=== PATIENT | male | born 1965 | race Caucasian/White ===

== ENCOUNTER 2019-06-16 11:07 | Outpatient (REF) | payer BC, SELFPAY ==
[2019-06-16 19:21] LABS: Anion Gap 5.6 mmol/L (3-11); BUN 14 mg/dL (7-18); CO2 32.4 mmol/L (21.0-32.0); Calcium 9.5 mg/dL (8.5-10.1); Chloride 102 mmol/L (98-107); Glucose 123 mg/dL (74-106); Potassium 4.4 mmol/L (3.5-5.1); Sodium 140 mmol/L (136-145)
== END 2019-06-16 11:27 ==
LOC: NCHCN 11:07
PROVIDERS: PCP Physician Assistant; Visit Provider Nurse Practitioner Family
DX: I10 Essential (primary) hypertension (principal)
CPT/HCPCS: 80048

== ENCOUNTER 2020-04-24 19:46 | Outpatient (REF) | payer BC, SELFPAY ==
[2020-04-24 20:17] LABS: ALT 52 U/L (16-63); AST 31 U/L (15-37); Albumin 4.4 g/dL (3.4-5.0); Alkaline Phosphatase 58 U/L (46-116); Anion Gap 7.2 mmol/L (3-11); BUN 12 mg/dL (7-18); Bilirubin, Total 0.5 mg/dL (0.2-1.0); CO2 28.8 mmol/L (21.0-32.0); CREATININE 0.97 mg/dL (0.70-1.30); Calcium 9.2 mg/dL (8.5-10.1); Calculated LDL 117 mg/dL (<100); Chloride 103 mmol/L (98-107); Cholesterol 203 mg/dL (<200); Glucose 114 mg/dL (74-106); HDL Cholesterol 44 mg/dL (40-60); Potassium 4.7 mmol/L (3.5-5.1); Sodium 139 mmol/L (136-145); Total Protein 7.6 g/dL (6.4-8.2); Triglyceride 214 mg/dL (<150)
== END 2020-04-24 20:06 ==
LOC: NCHCN 19:46
PROVIDERS: PCP Physician Assistant; Visit Provider Nurse Practitioner Family
DX: E78.5 Hyperlipidemia, unspecified (principal); I10 Essential (primary) hypertension
CPT/HCPCS: 80053; 80061

== ENCOUNTER 2021-05-22 09:13 | Outpatient (REF) | payer BC, SELFPAY ==
[2021-05-22 17:41] LABS: ALT 58 U/L (16-63); AST 28 U/L (15-37); Albumin 4.3 g/dL (3.4-5.0); Alkaline Phosphatase 68 U/L (46-116); Anion Gap 6.9 mmol/L (3-11); BUN 12 mg/dL (7-18); Bilirubin, Total 0.4 mg/dL (0.2-1.0); CO2 31.1 mmol/L (21.0-32.0); Chloride 102 mmol/L (98-107); Cholesterol 251 mg/dL (<200); Glucose 122 mg/dL (74-106); HDL Cholesterol 28 mg/dL (40-60); Potassium 4.4 mmol/L (3.5-5.1); Sodium 140 mmol/L (136-145); Total Protein 7.5 g/dL (6.4-8.2); Triglyceride 871 mg/dL (<150)
[2021-05-22 18:02] LABS: LDL CHOLESTEROL 88 mg/dL (<100)
== END 2021-05-22 09:14 | disposition home or self-care (01) ==
LOC: NCHCN 09:13
PROVIDERS: PCP Physician Assistant; Visit Provider Nurse Practitioner Family
DX: I10 Essential (primary) hypertension (principal); E78.5 Hyperlipidemia, unspecified
CPT/HCPCS: 80053; 80061; 83721

== ENCOUNTER 2021-06-05 08:14 | Outpatient (REF) | payer BC, SELFPAY ==
[2021-06-06 21:54] LABS: Hemoglobin A1C 5.7 % (<5.7)
== END 2021-06-05 08:15 | disposition home or self-care (01) ==
LOC: NCHCN 08:14
PROVIDERS: PCP Physician Assistant; Visit Provider Nurse Practitioner Family
DX: R73.9 Hyperglycemia, unspecified (principal)
CPT/HCPCS: 83036

== ENCOUNTER 2021-07-29 15:16 | Outpatient (REF) | payer BC, SELFPAY ==
[2021-07-29 21:30] LABS: Calculated LDL 97 mg/dL (<100); Cholesterol 169 mg/dL (<200); HDL Cholesterol 40 mg/dL (40-60); Triglyceride 162 mg/dL (<150)
== END 2021-07-29 15:17 | disposition home or self-care (01) ==
LOC: NCHCN 15:16
PROVIDERS: PCP Physician Assistant; Visit Provider Nurse Practitioner Family
DX: E78.5 Hyperlipidemia, unspecified (principal)
CPT/HCPCS: 80061

== ENCOUNTER 2022-04-29 15:03 | Outpatient (REF) | payer BC, SELFPAY ==
[2022-04-29 20:18] LABS: ALT 41 U/L (16-63); AST 32 U/L (15-37); Albumin 4.6 g/dL (3.4-5.0); Alkaline Phosphatase 59 U/L (46-116); Anion Gap 7.7 mmol/L (3-11); BUN 10 mg/dL (7-18); Bilirubin, Total 0.9 mg/dL (0.2-1.0); CO2 26.3 mmol/L (21.0-32.0); CREATININE 0.9 mg/dL (0.70-1.30); Calcium 9.4 mg/dL (8.5-10.1); Chloride 102 mmol/L (98-107); Estimated GFR 100.24 (mL/min/1.73m2); Glucose 112 mg/dL (74-106); Potassium 3.7 mmol/L (3.5-5.1); Sodium 136 mmol/L (136-145)
== END 2022-04-29 15:04 | disposition home or self-care (01) ==
LOC: NCHCN 15:03
PROVIDERS: PCP Physician Assistant; Visit Provider Nurse Practitioner Family
DX: I10 Essential (primary) hypertension (principal); E78.5 Hyperlipidemia, unspecified
CPT/HCPCS: 80053

== ENCOUNTER 2022-05-08 15:28 | Outpatient (REF) | payer BC, SELFPAY ==
[2022-05-08 19:02] LABS: HCT 45.4 % (40.0-50.0); HGB 15.3 g/dL (13.5-17.5); MCH 31.8 pg (27.0-33.0); MCHC 33.7 % (32.0-36.0); MCV 94 fL (80-95); MPV 10.3 fL (8.0-11.0); Platelet Count 228 10^3/uL (130-400); RBC 4.81 10^6/uL (4.36-5.78); RDW 12.5 % (11.8-14.1); RDW-SD 43.7 fL; WBC 9.09 10^3/uL (4.4-10.8)
[2022-05-08 19:18] LABS: Anion Gap 9.1 mmol/L (3-11); BUN 12 mg/dL (7-18); CO2 26.9 mmol/L (21.0-32.0); CREATININE 0.9 mg/dL (0.70-1.30); Calcium 9.3 mg/dL (8.5-10.1); Chloride 103 mmol/L (98-107); Estimated GFR 100.24 (mL/min/1.73m2); Glucose 123 mg/dL (74-106); Potassium 3.8 mmol/L (3.5-5.1); Sodium 139 mmol/L (136-145); TSH 1.31 uIU/mL (0.36-3.74)
== END 2022-05-08 15:29 | disposition home or self-care (01) ==
LOC: NCHCN 15:28
PROVIDERS: PCP Physician Assistant; Visit Provider Nurse Practitioner Family
DX: R55 Syncope and collapse (principal)
CPT/HCPCS: 80048; 85027; 84443

== ENCOUNTER 2022-06-16 11:20 | Outpatient (CLI) | payer BC, SELFPAY ==
--- NOTE | 2022-06-16 11:15 | RT.EKG_ITS ---
APPROVED REPORT Exam: Resting ECG Reason for Exam: New patient workup Patient Location: O HR:61 bpm ECG Measurements Heart Rate 61 AXIS NJ 150 P 80 QRSd 114 QRS -8 QT 408 T 60 QTc 411 Conclusion Sinus rhythm...normal P axis, V-rate 50- 99 Left atrial enlargement...P, P'>60mS, <-0.15mV V1 Incomplete right bundle branch block...QRSd >112, terminal axis(90,270) Left ventricular hypertrophy...multiple LVH criteria Left anterior fascicular block
== END 2022-06-16 11:21 | disposition home or self-care (01) ==
LOC: DI.CARD 11:21
PROVIDERS: PCP Physician Assistant; Visit Provider Internal Medicine Cardiovascular Disease
DX: R55 Syncope and collapse (principal); R94.31 Abnormal electrocardiogram [ECG] [EKG]; I44.4 Left anterior fascicular block; I45.19 Other right bundle-branch block
CPT/HCPCS: 93010

== ENCOUNTER 2024-07-04 20:06 | Outpatient (REF) | payer OTHER, SELFPAY ==
[2024-07-04 19:24] LABS: ALT 40 U/L (16-63); AST 32 U/L (15-37); Albumin 4.4 g/dL (3.4-5.0); Alkaline Phosphatase 70 U/L (46-116); Anion Gap 5.5 mmol/L (3-11); BUN 14 mg/dL (7-18); Bilirubin, Total 0.34 mg/dL (0.2-1.0); CO2 30.5 mmol/L (21.0-32.0); CREATININE 1.1 mg/dL (0.70-1.30); Calcium 9.6 mg/dL (8.5-10.1); Calculated LDL 115 mg/dL (<100); Chloride 105 mmol/L (98-107); Cholesterol 207 mg/dL (<200); Estimated GFR 77.81 (mL/min/1.73m2); Glucose 100 mg/dL (74-106); HDL Cholesterol 58 mg/dL (40-60); Potassium 4.7 mmol/L (3.5-5.1); Sodium 141 mmol/L (136-145); Triglyceride 173 mg/dL (<150)
--- OUTSIDE RECORDS SUMMARY | 2024-07-04 20:08 | XMS_ITS | Encounter Summary ---
Author Organization [facility] Address [facility] [place] [address] Care Team Providers Care Cargo Surveyor Name Role Phone Esther Hall APRN Primary Care Provider [phone]- [phone] Reason for Visit * Reason Comments Skin Check * Consultation (Routine) - Closed Specialty Diagnoses / Procedures Referred By Rena shanks Referred To Contact Dermatology Diagnoses Psoriasis, unspecified Psoriasis; Est. Patient-Notes Received Procedures Consult Esther Hall APRN [address] [place] [address] Dat Sheldon MD [address] [place] [address], [facility] [place] [address] Referral ID Status Reason Start Date Expiration Date V isits Requested Visits Authorized [id number] Closed PCP Updated and/or Approved 05/28/2021 05/28/2022 6 6 Encounter Details Date Type Department Care Team (Late st Contact Info) Description 08/27/2021 2:00 PM EST Office Visit Dermatology at [address] [phone] Dat Sheldon MD [address] [place] [address], [facility] [place] [address] Family history of psoriasis; History of psoriasis; Seborrheic dermatitis Social History Tobacco Use Types Packs/Day Years Used Date Smoking Tobacco: Never Smokeless Tobacco: Never Alcohol Use Standard Drinks/Week Comments Yes 0 (1 standard drink = 0.6 oz pur e alcohol) Sex and Gender Information Value Date Recorded Sex Assigned at Not on file Gender Identity Not on file Sexual Orientation Not on file documented as of this encounter Progress Notes * Dat Sheldon MD - 08/27/2021 2:00 PM EST PROBLEM: 1. Follow-up for evaluation of spot on scalp 2. Followup pustular psoriasis, palmar hands. 3. Family history of psoriasis in Father. Nikita follows up after last being seen in December 2015 for his psoriasis. In the meantime that has been quiesced sent. However in January/February he noted a red patch at the central parietal scalp andwas seen by his PCP and given clobetasol cream. After 6 applications that spot went away. He decided to come in just to have recheck the genital area in his scalp for any other advice and may give him . Physical examination reveals a pleasant 55-year-old man who has blue eyes reddish graying hair and fair skin. He is a benign examination of the scalp with patchy areas of seborrheic dermatitis present throughout the scalp but also in the conchal bowls of both ears. He has no pustular psoriasis on the hands the palms is very no involvement of his feet. He has no stigmata of psoriasis on the elbowsor knees. The only findings today are the seborrheic dermatitis findings within the scalp. Assessment and plan: Seborrheic dermatitis of scalp 1. Suspect the findings are similar were those of seborrheic dermatitis of his scalp 2. Recommend that he continue to use his Nizoral shampoo but alternate this with second medication per either tar shampoo or and shoulders, Selsun Blue etc. Allow lather to sit for 20 minutes before rinsing out. 3. Reassured patient I see no malignant or premalignant lesions on examination today. His has been concerned about this possibility. 4. Return to clinic as needed for new lesions concerns. History of psoriasis 1. Currently quiescent 2. Patient reassured Benign skin examination 1. Patient reassured about his benign skin examination 2. Encouraged use of SPF 50-70 sunscreen CC: Esther Hall APRN documented in this encounter Plan of Treatment Not on file documented as of this encounter Visit Diagnoses Diagnosis Family history of psoriasis Family history of skin conditions History of psoriasis Personal history of diseases of skin and subcutaneous tissue Seborrheic dermatitis Seborrheic dermatitis, unspecified documented in this encounter Care Teams Cargo Surveyor Relationship Specialty Start Date End Date Esther Hall, ASSISTANT PROFESSOR OF MUSIC [address] [place] [address] PCP - General Family Medicine 06/11/21 documented as of this encounter
--- OUTSIDE RECORDS SUMMARY | 2024-07-04 20:08 | XMS_ITS | Encounter Summary ---
Author Organization [facility] Address [address] [place] [address] Care Team Providers Care Regulation Supervisor Name Role Phone Unknown, Provider Primary Care Provider Unava ilable Encounter Details Date Type Department Care Team (Late st Contact Info) Description 09/02/2018 Results Only [facility] [phone] Vahid Linton MD [address] [place] [phone] Social History Tobacco Use Types Packs/Day Years Used Date Smoking Tobacco: Never Assessed Sex and Gender Information Value Date Recorded Sex Assigned at Not on file Legal Sex Male 18:09 EST Gender Identity Male 05/11/2019 8:53 EST Sexual Orientation Not on file documented as of this encounter Plan of Treatment Not on file documented as of this encounter Procedures Procedure Name Priority Date/Time Associated Diagnosis Comments SURGICAL PATHOLOGY Routine 09/02/2018 21 :56 EST documented in this encounter Results * SURGICAL PATHOLOGY (09/02/2018 21:56 EST) Pathology Report: SURGICAL PATHOLOGY REPORT Reports generated via electronic interface contain original data; however they are lacking the format of the original report. Caution should be taken when reading/interpret ing unformatted reports. Name: ? NIKITA HAGEN ? Accession #: ? [id number] ? : ? 1965 (Age: 52) ??M ? Collect Date: ? 09/02/2018 ? Location: ? [facility] ? Receive Date: ? 09/02/2018 ? Provider: VAHID LINTON MD Copy to: ? Final Pathologic Diagnosis: COLON, SIGMOID, POLYPECTOMY: - Sessile serrated adenoma. Document reviewed and electronically signed by: SALINA MORTENSEN MD Report ??Date: 09/06/2018 12:37 By the signature above, the attending physician certifies that he/she has personally conducted a gross and/or microscopic examination of the described specimens and rendered or confirmed the above diagnosis. Specimen(s) Received: Sigmoid polypectomy Clinical History: Screening; sigmoid colon polyp Gross Description: ? Received in formalin labelled with proper patient identification (initials B, D) and sigmoid polyp is an aggregate of garnett-yellow soft tissue (0.8 x 0.4 x 0.3 cm). Submitted in toto in 1. AMEE Cheema (ASC) 09/03/2018 7:30 AM End of Report [facility] 09/02/2018 21:5 6 EST 09/02/2018 21:56 EST us Vahid Linton MD PATHOLOGY ORDERABLES F inal Result [facility] [address] [place] [address] documented in this encounter Visit Diagnoses Not on filedocumented in this encounter Care Teams Regulation Supervisor Relationship Specialty Start Date End Date Unknown, Provider, PCP - General 09/02/18 04/05/19 documented as of this encounter
--- OUTSIDE RECORDS SUMMARY | 2024-07-04 20:08 | XMS_ITS | Encounter Summary ---
Author Organization [facility] Address [address] [place] [address] Care Team Providers Care Digital Assistant Name Role Phone Steve Flores MD Primary Care Provider Unknown, Provider MD Unavailable Unavailable Encounter Details Date Type Department Care Team (Late st Contact Info) Description 10/10/2021 Lab Requisition [facility] Pathology & Laboratory Medicine - [facility] [address] [place] [address] Vahid Beasley MD [address] [place] [phone] Encounter for other general examination Social History Tobacco Use Types Packs/Day Years Used Date Smoking Tobacco: Never Smokeless Tobacco: Never Interpersonal Safety Answer Date Record ed Physically Hurt Never 01/29/2020 Verbally Threaten Not on file 01/29/2020 Sex and Gender Information Value Date Recorded Sex Assigned at Not on file Legal Sex Male 18:09 EST Gender Identity Male 05/11/2019 8:53 EST Sexual Orientation Not on file documented as of this encounter Plan of Treatment Not on file documented as of this encounter Procedures Procedure Name Priority Date/Time Associated Diagnosis Comments SURGICAL PATHOLOGY Today 10/10/2021 13 :27 EDT documented in this encounter Results * SURGICAL PATHOLOGY (10/10/2021 13:27 EDT) Note to Patient The following pathology results have been interpreted by your pathologist and may be available to you before your health provider has had the opportunity to review them. Please allow time for your provider to receive these results and explore management options, if applicable. 10/15/2021 8:54 T [facility] Final Diagnosis A. RECTUM, POLYP, BIOPSY: - Hyperplastic polyp. 10/15/2021 8:54 [facility] Attestation By the signature below, the attending physician certifies that they have 1) personally conducted a gross and/or microscopic examination of the described specimen(s), and/or personally interpreted the results of laboratory testing of the described specimen(s), and 2) personally rendered or confirmed the above diagnosis. 10/15/2021 8:54 [facility] at 0854 Clinical History History of colon polyp 10/15/2021 8:54 T [facility] Gross Description A. Received in formalin labelled with proper patient identification (initials B, D) and rectal polyp is a single fragment of pink-garnett soft tissue (0.4 x 0.4 x 0.3 cm). The specimen is entirely submitted in A1. AMEE KRAFT(ASCP) 10/11/2021 10:39 10/15/2021 8:54 T [facility] Performing Lab [facility] 10/15/2021 8:54 T [facility] Scanned Images 10/15/2021 8:54 [facility] Tissue SPECIMEN FROM RECTUM / Unknown 10/10/2021 13:27 EDT 10/11/2021 8:17 EDT us Vahid Beasley MD PATHOLOGY ORDERABLES F inal Result [facility] [address] [place] [address] documented in this encounter Visit Diagnoses Diagnosis Encounter for other general examination documented in this encounter Care Teams Digital Assistant Relationship Specialty Start Date End Date Steve Flores MD [address] [place] [address] PCP - General 05/11/19 Unknown, Provider, [place] [address] 05/11/19 documented as of this encounter
--- OUTSIDE RECORDS SUMMARY | 2024-07-04 20:08 | XMS_ITS | Clinical Summary ---
Author Organization [facility] Address [facility] [place] [address] Care Team Providers Care Double Bass Player Name Role Phone Calvinmisa Esther H DONTRELL Primary Care Provider [phone]- [phone] Allergies No known active allergies Medications Medication Sig Dispensed Refills Start Date End Date Status lisinopril (PRINIVIL;ZESTRIL) 20 mg Tablet 0 07/06/2015 Active clobetasol (TEMOVATE) 0.05 % Cream 12/06/2015 Active ketoconazole (NIZORAL) 2 % Shampoo USE SHAMPOO FOR PSORIASIS ON SCALP DAILY, RINSE AFTER 2 TO 3 MINUTES 0 09/26/2015 Active amLODIPine (Norvasc) 5 mg Tablet Take 5 mg by mouth Daily. Active aspirin 81 mg Tablet, Chewable Take 81 mg by mouth Daily. Active atorvastatin (Lipitor) 40 mg Tablet TAKE 1 TABLET BY MOUTH AT BEDTIME 07/16/2021 Active Active Problems Problem Noted Date Diagnosed Date Psoriasis 09/26/2015 High myopia, both eyes 04/01/2011 Retinal holes 04/01/2011 Horseshoe retinal tear, left eye 04/01/2011 UPJ (ureteropelvic junction) obstruction Overview (03/28/2012): 1998 balloon dilation of the UPJ 2 attempts at accucise endopyeotomy in 2002 and 2005, with persistent impaired drainage by renogram Family History Medical History Relation Comments Cancer Father Heart Disease Father Amblyopia Neg Hx Blindness Neg Hx Cataracts Neg Hx Diabetes Neg Hx Genitourinary Problems Neg Hx Glaucoma Neg Hx Hypertension Neg Hx Kidney Disease Neg Hx Macular Degeneration Neg Hx Nephrolithiasis Neg Hx Retinal Detachment Neg Hx Strabismus Neg Hx Stroke Neg Hx Thyroid Disease Neg Hx Relation Status Comments Father Social History Tobacco Use Types Packs/Day Years Used Date Smoking Tobacco: Never Smokeless Tobacco: Never Alcohol Use Standard Drinks/Week Comments Yes 0 (1 standard drink = 0.6 oz pur e alcohol) Sex and Gender Information Value Date Recorded Sex Assigned at Not on file Gender Identity Not on file Sexual Orientation Not on file Last Filed Vital Signs Vital Sign Reading Time Taken Comments Blood Pressure 145/105 01/07/2011 3:44 PM EDT Pulse 61 01/07/2011 3:44 PM EDT Temperature - - Respiratory Rate - - Oxygen Saturation - - Inhaled Oxygen Concentration - - Weight 88.5 kg (195 lb) 01/07/2011 3:44 PM EDT Height 188 cm (6' 2) 01/07/2011 3:44 PM EDT Body Mass Index 25.04 01/07/2011 3:44 PM EDT Plan of Treatment Health Maintenance Due Date Last Done Comments CT Colonography 1965 Colonoscopy 1965 Colorectal Cancer Screening 1965 FIT DNA 1965 FIT 1965 Sigmoidoscopy (10 year) with FIT yearly 1965 Sigmoidoscopy 1965 HIV screen 10/03/1983 Hepatitis C Screening 10/03/1983 Hepatitis B vaccine (0-59 yrs) (1) 1984 Tetanus/Diphtheria/Pertussis Vaccines (1 - Tdap) 10/02 Zoster vaccine (1 of 2) 10/03/2015 Advance Directive 2020 Covid-19 Vaccine (1 - 2023-25 season) 2024 Influenza (Flu) vaccine (1 o f 1 - Influenza standard series) 02/28/2024 Care Teams Double Bass Player Relationship Specialty Start Date End Date Esther Hall, 1ST GRADE TEACHER [address] [place] [id number] PCP - General Family Medicine 06/11/21
--- OUTSIDE RECORDS SUMMARY | 2024-07-04 20:08 | XMS_ITS | Encounter Summary ---
Author Organization [facility] [place] [address] Care Team Providers Care Workers Compensation Analyst Name Role Phone Esther Hall APRN Primary Care Provider [phone]- [phone] Reason for Referral * Consultation (Routine) - Closed Specialty Diagnoses / Procedures Referred By Contact Referred To Contact Electrophysiology / Cardiology Diagnoses Syncope, unspecified syncope type TILT TABLE FOR RECURRENT SYNCOPE Procedures ELECTROPHYSIOLOGY PROCEDURE Esther Hall APRN [address] [place] [address] [facility] [address] [place] [phone] Referral ID Status Reason Start Date Expiration Date V isits Requested Visits Authorized [id number] Closed Consult, Test & Treat PCP Updated and/or Approved 06/24/2022 06/24/2023 6 6 Encounter Details Date Type Department Care Team (Late st Contact Info) Description 06/24/2022 Transcribe Orders eDH Incoming Referrals [phone] Esther Hall APRN [address] [place] [phone] Syncope, unspecified syncope type Social History Tobacco Use Types Packs/Day Years Used Date Smoking Tobacco: Never Smokeless Tobacco: Never Alcohol Use Standard Drinks/Week Comments Yes 0 (1 standard drink = 0.6 oz pur e alcohol) Sex and Gender Information Value Date Recorded Sex Assigned at Not on file Gender Identity Not on file Sexual Orientation Not on file documented as of this encounter Plan of Treatment Scheduled Referrals Name Type Priority Associated Diagnoses Orde r Schedule Referral to Cardiology Outpatient Referral Routine Syncope, unspecified syncope type Ordered: 06/24/2022 documented as of this encounter Visit Diagnoses Diagnosis Syncope, unspecified syncope type documented in this encounter Care Teams Workers Compensation Analyst Relationship Specialty Start Date End Date Esther Hall APRN [address] [place] [id number] PCP - General Family Medicine 06/11/21 documented as of this encounter
--- OUTSIDE RECORDS SUMMARY | 2024-07-04 20:08 | XMS_ITS | Encounter Summary ---
Author Organization [facility] Address [address] [place] [address] Care Team Providers Care Oyster Preparer Name Role Phone Steve Flores MD Primary Care Provider Unknown, Provider MD Unavailable Unavailable Reason for Visit * Reason Comments Eye Problem NPV retinal hole lef t eye, ? History of laser to hole left eye 10 years ago at [facility] Encounter Details Date Type Department Care Team (Late st Contact Info) Description 05/11/2019 8:45 EST Office Visit [facility] Ophthalmology - [address] [address] Lawrence Koch MD [address] [facility] [place] [address] Social History Tobacco Use Types Packs/Day Years Used Date Smoking Tobacco: Never Smokeless Tobacco: Never Sex and Gender Information Value Date Recorded Sex Assigned at Not on file Legal Sex Male 18:09 EST Gender Identity Male 05/11/2019 8:53 EST Sexual Orientation Not on file documented as of this encounter Progress Notes * Lawrence Koch MD - 05/11/2019 0845 EST Chief Complaint Patient presents with ??? Eye Problem NPV retinal hole left eye, ? History of laser to hole left eye 10 years ago at [facility] Comments Eye Problem Additional comments: NPV retinal hole left eye, ? [facility] HPI Location: Both eyes Pain: 0 - No pain Quality: Blurry Severity: Mild Duration: Months Timing: Constant Lasts: Continuous Context: NPV ? retinal hole left eye. History of laser to hole/tear ? left eye in [facility] about 10 years ago Modifying factors: Patient notes no flashes or floaters. No pain, no pressure. No vision changes. Associated Signs & Symptoms: High myopia Visual Fluctuations: None Attestation: Patient is here for a NPV evaluation for a retinal hole left eye. Vision is good, onlywhen he has his glasses on, high myopic in both eyes. Pt has a history of a retinal hole in his left eye treated with laser about 10 years ago at [facility]. Patient reports occasional floaters that he hashad for years, no ne and different ones. No flashes of light and no eye pain. Moderate, months, cons tant, continuous. Base Eye Exam Visual Acuity (Snellen - Linear) Right Left Dist cc 20/20 -2 20/25 -1 Correction: Glasses Tonometry (Applanation, 9:17) Right Left Pressure 18 19 Pupils Pupils Light APD Right PERRL 5 None Left PERRL 5 None Visual Muñoz (Counting fingers) Right Left Full Full Extraocular Movement Right Left Full, Ortho Full, Ortho Neuro/Psych Oriented x3: Yes Mood/Affect: Normal Dilation Both eyes: Tropicamide 1%, Phenylephrine 2.5% @ 9:17 Slit Lamp and Fundus Exam External Exam Right Left External Normal Normal Slit Lamp Exam Right Left Lids/Lashes Normal Normal Conjunctiva/Sclera White and quiet White and quiet Cornea Clear Clear Anterior Chamber Deep and quiet Deep and quiet Iris Round and reactive Round and reactive Lens Trace Nuclear sclerosis Trace Nuclear sclerosis Vitreous Vitreous syneresis, no PVD seen Vitreous syneresis, no PVD seen Fundus Exam Right Left Disc Normal Normal C/D Ratio 0.5 0.3 Macula Normal Normal Vessels Normal Normal Periphery Pigment clump at 11 o'clock pigment clumping at 2, tuft at 2:30, pigment clumping at 4 and 5 and 6 with a defect surrounding c/w old laser Please refer to large retinal drawing. IMAGING: IMPRESSION: 1. High myopia, both eyes 2. Cystic retinal tuft of left eye 3. Vitreous syneresis of both eyes PLAN: High myopia both eyes No holes or tears seen Retina detachment precautions Observe Cystic Retinal Tuft left eye No holes or tears seen on scleral depressed exam Retinal detachment precautions Follow Vitreous Syneresis both eyes No PVD seen No holes or tears seen Follow Follow up in 1 year or PRN Will send a copy of today's note to Dr. Gabriella Miranda I, Dr. Lawrence Koch, have performed my own HPI and reviewed the [facility]'s ROS. I have also reviewed the patient's past medical, family, social and surgical history, as well as the patient's medications, allergies, and problem list. I am scribing for Dr. Lawrence Koch MD while he is personally performing the service. 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 aspirin chewable 81 mg tablet Take 81 mg by mouth daily. atorvastatin (LIPITOR) 10 mg tablet Take 10 mg by mouth daily. lisinopril (PRINIVIL) 10 mg tablet Take 10 mg by mouth daily. amLODIPine (NORVASC) 5 mg tablet Take 5 mg by mouth daily. added in this encounter Eye Exam Visual Acuity (Snellen - Linear) Right eye Left eye Dist cc 20/20 -2 20/25 -1 Correction: Glasses Tonometry (Applanation, 9:17) Right eye Left eye Pressure 18 19 Pupils Pupils Light APD Right eye PERRL 5 None Left eye PERRL 5 None Visual Muñoz (Counting fingers) Right eye Left eye Full Full Extraocular Movement Right eye Left eye Full, Ortho Full, Ortho Neuro/Psych Oriented x3: Yes Mood/Affect: Normal Dilation Both eyes: Tropicamide 1%, P henylephrine 2.5% @ 9:17 External Exam Right eye Left eye External Normal Normal Slit Lamp Exam Right eye Left eye Lids/Lashes Normal Normal Conjunctiva/Sclera White and quiet White and dorcas et Cornea Clear Clear Anterior Chamber Deep and quiet Deep and quiet Iris Round and reactive Round and quiana ctive Lens Trace Nuclear sclerosis Trace Nu clear sclerosis Vitreous Vitreous syneresis, no PVD seen Vitreous syneresis, no PVD seen Fundus Exam Right eye Left eye Disc Normal Normal C/D Ratio 0.5 0.3 Macula Normal Normal Vessels Normal Normal Periphery Pigment clump at 11 o'clock pigm ent clumping at 2, tuft at 2:30, pigment clumping at 4 and 5 and 6 with a defect surrounding c/w old laser Care Teams Oyster Preparer Relationship Specialty Start Date End Date Steve Flores MD [address] [place] [address] PCP - General 05/11/19 Unknown, Provider, [address] [place] [address] 05/11/19 documented as of this encounter
--- OUTSIDE RECORDS SUMMARY | 2024-07-04 20:08 | XMS_ITS | Referral Summary ---
Author Organization [facility] Address [address] [place] [address] Care Team Providers Care Web Graphic Designer Name Role Phone Steve Flores MD Primary Care Provider [phone] Unknown, Provider MD Unavailable Unavailable Allergies No known active allergies Medications amLODIPine (NORVASC) 5 mg tablet Take 5 mg by mouth daily. Active lisinopril (PRINIVIL) 10 mg tablet Take 10 mg by mouth daily. Active atorvastatin (LIPITOR) 10 mg tablet Take 10 mg by mouth daily. Active aspirin chewable 81 mg tablet Take 81 mg by mouth daily. Active Active Problems Problem Noted Date Diagnosed Date High myopia, both eyes 05/11/2019 Cystic retinal tuft of left eye 05/11/2019 Vitreous syneresis of both eyes 05/11/2019 Social History Tobacco Use Types Packs/Day Years Used Date Smoking Tobacco: Never Smokeless Tobacco: Never Interpersonal Safety Answer Date Record ed Physically Hurt Never 01/29/2020 Verbally Threaten Not on file 01/29/2020 Sex and Gender Information Value Date Recorded Sex Assigned at Not on file Legal Sex Male 18:09 EST Gender Identity Male 05/11/2019 8:53 EST Sexual Orientation Not on file Plan of Treatment Not on file Insurance [facility] Address: [address] [facility] [place] [address] Care Teams Web Graphic Designer Relationship Specialty Start Date End Date Steve Flores MD [address] [place] [address] PCP - General 05/11/19 Unknown, Provider, [address] [place] [address] 05/11/19
--- OUTSIDE RECORDS SUMMARY | 2024-07-04 20:08 | XMS_ITS | Encounter Summary ---
Author Organization [facility] Address [facility] [place] [address] Care Team Providers Care Gas Pumping Station Supervisor Name Role Phone Steve Flores MD Primary Care Provider [phone] Encounter Details Date Type Department Care Team (Late st Contact Info) Description 01/04/2016 11:30 AM EDT Office Visit Dermatology at [address] [phone] Dat Sheldon MD [address] [facility] [place] [address] Psoriasis Social History Tobacco Use Types Packs/Day Years [...] Progress Notes * Dat Sheldon MD - 01/04/2016 11:32 AM EDT PROBLEM: 1. Followup pustular psoriasis, palmar hands. 2. Family history of psoriasis in Father. Nikita follows up and is doing better. The intralesional Kenalog injection really did help his hands. He still has a little bit of minimal dryness and scaling remaining. Physical examination today reveals some minimal scaling and peeling at 2 localized areas, one in the left, one in the right palmar hands, but otherwise, he is clear. He has no pustules, no erythema present on the hands. ASSESSMENT AND PLAN: History of pustular psoriasis, palmar hands, thenar eminences. A. Recommend that we begin using Clobesol in an ointment form, 0.05% applying on the at-bedtime basis and use the cream of the same name in the morning. B. Continue Aveeno/CeraVe cream as moisturizer during the day. C. Do try to wear gloves when doing frictional work. Patient does landscaping work. D. I asked him to contact me in a month with his progress. If things are under control, will continue with just topicals constantly; if his hands are beginning to flare again, will offer him the option of another Kenalog injection. E. Patient would like to try and avoid oral therapies for now. F. Continue using the 2 different shampoos, T/Gel and ketoconazole for scalp involvement. cc: Steve Mckeon MD documented in this encounter Plan of Treatment Not on file documented as of this encounter Visit Diagnoses Diagnosis Psoriasis Other psoriasis documented in this encounter Care Teams Gas Pumping Station Supervisor Relationship Specialty Start Date End Date Steve Flores MD [address] [place] [id number] PCP - General 05/21/10 06/10/21 documented as of this encounter
--- OUTSIDE RECORDS SUMMARY | 2024-07-04 20:08 | XMS_ITS | Clinical Summary ---
Author Organization [facility] Address [address] [place] [address] Care Team Providers Care Road Freight Firer Name Role Phone Steve Flores MD Primary Care Provider Unknown, Provider MD Unavailable Unavailable Allergies No [...] 05/11/2019 Vitreous syneresis of both eyes 05/11/2019 Surgical History Surgery Date Site/Laterality Comments OTHER SURGICAL HISTORY Left laser to retinal tear or hole Medical History Medical History Date Comments Dermatologic disease Hypertension Cataract Family History Medical History Relation Comments Heart Attack Brother Cancer Father Heart Failure Maternal Grandfather Heart Failure Mother Relation Status Comments Brother Father Maternal Grandfather Mother Social History Tobacco Use Types Packs/Day Years Used Date Smoking Tobacco: Never Smokeless Tobacco: Never Interpersonal Safety Answer Date Record ed Physically Hurt Never 01/29/2020 Verbally Threaten Not on file 01/29/2020 Sex and Gender Information Value Date Recorded Sex Assigned at Not on file Legal Sex Male 18:09 EST Gender Identity Male 05/11/2019 8:53 EST Sexual Orientation Not on file Obstetrics History Plan of Treatment Health Maintenance Due Date Last Done Comments Hepatitis C Screen 1965 Hepatitis B Vaccine (1 of 3 - 19+ 3-dose series) 10/02 COVID-19 Vaccine (2023- season) 2024 Insurance [facility] Care Teams Road Freight Firer Relationship Specialty Start Date End Date Steve Flores MD [address] [place] [address] PCP - General 05/11/19 Unknown, Provider, [address] [place] [address] 05/11/19
--- OUTSIDE RECORDS SUMMARY | 2024-07-04 20:08 | XMS_ITS | Encounter Summary ---
Author Organization [facility] Address [address] [place] [address] Care Team Providers Care Heel Brusher Name Role Phone Unknown, Provider Primary Care Provider Unava ilable Encounter Details Date Type Department Care Team (Latest Contact Info) Description 09/02/2018 17:02 EST - 09/02/2018 23:59 EST Hospital Encounter [address] [address] Unknown, Provider, Discharge Disposition: Auto Discharge Social History Tobacco Use Types Packs/Day Years Used Date Smoking Tobacco: Never Assessed Sex and Gender Information Value Date Recorded Sex Assigned at Not on file Legal Sex Male 18:09 EST Gender Identity Male 05/11/2019 8:53 EST Sexual Orientation Not on file documented as of this encounter Discharge Disposition Disposition Code Departure Means Destination Auto Discharge Home documented in this encounter Plan of Treatment Not on file documented as of this encounter Visit Diagnoses Not on filedocumented in this encounter Care Teams Heel Brusher Relationship Specialty Start Date End Date Unknown, Provider, PCP - General 09/02/18 04/05/19 documented as of this encounter
--- OUTSIDE RECORDS SUMMARY | 2024-07-04 20:09 | XMS_ITS | Encounter Summary ---
Author Organization [facility] Address [facility] [place] [address] Care Team Providers Care Air Pollution Control Engineer Name Role Phone Steve Flores MD Primary Care Provider [phone] Encounter Details Date Type Department Care Team (Late st Contact Info) Description 10/29/2015 2:30 PM EDT Office Visit Dermatology at [address] [phone] Dat Sheldon MD [address] [facility] [place] [address] Psoriasis Social History Tobacco Use Types Packs/Day [...] Progress Notes * Dat Sheldon MD - 10/29/2015 2:44 PM EDT Problem: 1. Hand Dermatitis. 2. Family history of psoriasis in father. Nikita follows up and is now 50. He turned 50 since I last saw him, but he has been doing well with his pustular psoriasis of palmar hands. Physical examination reveals a pleasant 50-year-old gentleman whose psoriatic patch plaques on the right and left thenar eminences have improved significantly. In fact, on the right side it is largely flattened and healed. He still has a little bit peripherally at that site and still some thickening on the left thenar eminence but without any pustulosis today. Assessment and Plan: Pustular psoriasis palmar hands in a patient with otherwise very mild scalp psoriasis and nail pitting. A. Continue clobetasol cream 0.05% applying now b.i.d. still to thickened hyperkeratotic areas but just once a day to central right thenar eminence area, which is largely improved. Continue this for six weeks and return to clinic. B. Patient is currently using Aveeno as an emollient during the day. I recommended that he also consider and obtain CeraVe cream applied during the day. C. Patient is applying the clobetasol in the mornings and then wearing gloves to bed overnight. He was trying to use it three times a day, but I discouraged him from this, instead just use twice a day. D. Recommended continuing his two different shampoos, T/Gel and ketoconazole, alternating every two weeks between them. Return to clinic in six weeks for repeat check. Note, the patient and I are both happy that it would appear that we are not going to need to proceed to oral therapies, which he and I both would like to avoid. cc: Riley Vega PA-C documented in this encounter Plan of Treatment Not on file documented as of this encounter Visit Diagnoses Diagnosis Psoriasis Other psoriasis documented in this encounter Care Teams Air Pollution Control Engineer Relationship Specialty Start Date End Date Steve Flores MD [address] [place] [id number] PCP - General 05/21/10 06/10/21 documented as of this encounter
--- OUTSIDE RECORDS SUMMARY | 2024-07-04 20:09 | XMS_ITS | Encounter Summary ---
Author Organization [facility] Address [facility] [place] [address] Care Team Providers Care Legal Executive Assistant Name Role Phone Steve Flores MD Primary Care Provider [phone] Reason for Visit * Reason Comments Spots and/or Floaters sent for check of retinal hole OS, pt only sees occas. floater Encounter Details Date Type Department Care Team (Late st Contact Info) Description 04/01/2011 7:45 AM EDT Office [place] [phone] Lawrence Arora MD [facility] [place] [address] High myopia, both eyes (Primary Dx); Retinal holes; Horseshoe retinal tear, left eye Discharge Disposition: Home Social History Tobacco Use Types Packs/Day Years Used Date Smoking Tobacco: Never Smokeless Tobacco: Never Alcohol Use Standard Drinks/Week Comments Yes 0 (1 standard drink = 0.6 oz pur e alcohol) Sex and Gender Information Value Date Recorded Sex Assigned at Not on file Gender Identity Not on file Sexual Orientation Not on file documented as of this encounter Progress Notes * Lawrence Arora MD - 04/01/2011 9:41 AM EDT High myopia and retinal holes OS. Small retinal tear OS: Laser today [address] Miranda Pt. Educational brochures STAT if flashes,floaters,vcisual field changes documented in this encounter Nursing Notes * 04/01/2011 7:45 AM EDT >> ESTRELLA SCHMID Apr 01, 2011 8:07 AM Description:Patient presents with: Spots and/or Floaters - sent for check of retinal hole OS, pt only sees occas. floater Location:left eye Duration: UNKNOWN Rapidity of Onset:unknown Severity: unknown Condition:unchanged Pain:0 Associated Symptoms:none documented in this encounter Plan of Treatment Not on file documented as of this encounter Visit Diagnoses Diagnosis High myopia, both eyes- Primary Myopia Retinal holes Macular cyst, hole, or pseudohole of retina Horseshoe retinal tear, left eye Horseshoe tear of retina without detachment documented in this encounter Care Teams Legal Executive Assistant Relationship Specialty Start Date End Date Steve Flores MD [address] [address] PCP - General 05/21/10 06/10/21 documented as of this encounter
--- OUTSIDE RECORDS SUMMARY | 2024-07-04 20:09 | XMS_ITS | Encounter Summary ---
Author Organization [facility] Address [facility] [place] [address] Care Team Providers Care Animal Rides Manager Name Role Phone Steve Flores MD Primary Care Provider [phone] Encounter Details Date Type Department Care Team (Latest Contact Info) Description 01/08/2012 11:28 AM EDT - 01/08/2012 11:59 PM EDT Hospital Encounter [place] [phone] CLINIC, Torres Perrin Jr., MD [facility] [place] [address] UPJ obstruction, acquired Discharge Disposition: Home Social History Tobacco Use [...] Procedure Name Priority Date/Time Associated Diagnosis Comments NM RENAL SCAN DIURETIC(MAG3) Routine 01/08/2012 1:15 PM EDT Other ureteric obstruction documented in this encounter Results * NM RENAL, DIURETIC SCAN (01/08/2012 1:15 PM EDT) Anatomical Region Laterality Modality Other 01/08/2012 1:15 PM EDT Impressions 01/09/2012 10:02 AM EDT IMPRESSION: 1. ??Moderately delayed clearance of activity from the dilated right pelvocaliceal system but not significantly changed compared to the prior study of 09/22/08. ?? 2. ??Normal bilateral renal function. ?? 3. ??Overall, no significant change compared to the prior study. ?? Film and interpretation reviewed by the attending Narrative 01/09/2012 10:02 AM EDT DIURETIC RENAL SCAN, 01/08/12: CLINICAL HISTORY: ??Right-sided UPJ obstruction. ??Evaluate change from prior study. ?? PROCEDURE: ??Following IV administration of 10 mCi 99m-technetium MAG3, posterior projection images of the abdomen and pelvis were obtained at two-second intervals for the first minute and at one-minute intervals for the next 30 minutes. ?? The patient then received 40 mg intravenous Lasix followed by additional posterior projection images at one minute per frame for an additional 30 minutes. ?? COMPARISON: ??Diuretic renal scan, 09/22/08. ?? FINDINGS: ??There is normal perfusion, extraction, and excretion of activity from both kidneys. ??The left kidney has mildly delayed clearance of activity from the renal pelvis but this clears promptly following furosemide administration. ?? The right kidney has markedly delayed clearance of activity from a dilated-appearing pelvocaliceal system. ?? Following furosemide administration, the right kidney pelvocaliceal system is dilated and has moderately delayed clearance of activity with a ??T-1/2 clearance of approximately 30 minutes. ??This does not appear significantly changed compared to the prior study of 09/22/08. ?? The differential function based on the pre-furosemide images obtained between two and three minutes is 50% from the right kidney and 50% from the left kidney. ?? Procedure Note Bharathi Moscoso MD - 01/09/2012 DIURETIC RENAL SCAN, 01/08/12: CLINICAL HISTORY: Right-sided UPJ obstruction. Evaluate change fromprior study. PROCEDURE: Following IV administration of 10 mCi 99m-technetium MAG3, posterior projection images of the abdomen and pelvis were obtained at two-second intervals for the first minute and at one-minute intervals forthe next 30 minutes. The patient then received 40 mg intravenous Lasix followed by additional posterior projection images at one minute per frame for an additional 30 minutes. COMPARISON: Diuretic renal scan, 09/22/08. FINDINGS: There is normal perfusion, extraction, and excretion ofactivity from both kidneys. The left kidney has mildly delayed clearance ofactivity from the renal pelvis but this clears promptly following furosemide administration. The right kidney has markedly delayed clearance of activity from a dilated-appearing pelvocaliceal system. Following furosemide administration, the right kidney pelvocaliceal systemis dilated and has moderately delayed clearance of activity with a T-1/2 clearance of approximately 30 minutes. This does not appear significantly changed compared to the prior study of 09/22/08. The differential function based on the pre-furosemide images obtainedbetween two and three minutes is 50% from the right kidney and 50% from the left kidney. IMPRESSION IMPRESSION: 1. Moderately delayed clearance of activity from the dilated right pelvocaliceal system but not significantly changed compared to the priorstudy of 09/22/08. 2. Normal bilateral renal function. 3. Overall, no significant change compared to the prior study. Film and interpretation reviewed by the attending Torres Lindsey Jr., MD IMG NM ORDERABLES documented in this encounter Visit Diagnoses Diagnosis UPJ obstruction, acquired Other ureteric obstruction documented in this encounter Administered Medications Inactive Administered Medications - up to 3 most recent administrations Medication Order MAR Action Action Date Dose Rate Site furosemide (LASIX) injection 40 mg 40 mg, Intravenous, ONCE, 1 dose, On Elida 01/08/12 at 1245 Given 01/08/2012 12:30 PM EDT 40 mg documented in this encounter Care Teams Animal Rides Manager Relationship Specialty Start Date End Date Steve Flores MD [address] [place] [id number] PCP - General 05/21/10 06/10/21 documented as of this encounter
--- OUTSIDE RECORDS SUMMARY | 2024-07-04 20:09 | XMS_ITS | Encounter Summary ---
Author Organization [facility] Address [facility] [place] [address] Care Team Providers Care Foreign Languages Professor Name Role Phone Steve Flores MD Primary Care Provider [phone] Encounter Details Date Type Department Care Team (Late st Contact Info) Description 09/26/2015 10:45 AM EDT Office Visit Dermatology at [address] [place] [phone] Dat Sheldon MD [address] [facility] [address] [place] [address] Psoriasis Social History Tobacco Use Types Packs/Day [...] Progress Notes * Dat Sheldon MD - 09/26/2015 11:13 AM EDT Problem: Hand dermatitis. 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 He happened to be in [place] when it really flared, but it started before then. He was given fluocinonide cream to use without improvement and an antibiotic to use without improvement by Riley Vega. The patient states that he thinks his father may have had similar rash problems. Nikita himself has seen a mixer lever operator in the past for scaling of his scalp and of his face and was told to use a tar shampoo. The patient thinks this right thenar eminence patch plaque may have developed after he poked himself deeply with a naren thorn last fall. The patient see in consultation for Riley Vega P.A.-C. Physical examination reveals a pleasant 49-year-old gentleman who has pustular psoriatic lesions with hyperkeratosis and scaling in patches over the thenar eminence of the right hand and less prominent on the thenar eminence of the left hand, with some small patches also over the finger pads. He has pitting of his fingernails. He has scaling in his scalp with some erythematous patches consistent with psoriasis. He has no lesions on the elbows or knees. Assessment and Plan: Pustular psoriasis, palmar hands, in a patient with otherwise mild scalp psoriasis and nail pitting. a. Discussed diagnosis. b. The description that the patient gives of his father makes it now sound like his father had psoriasis. c. Recommend that we advance to group one corticosteroid, clobetasol cream 0.05%, apply b.i.d. to hands for a month, then return to clinic. 45 grams dispensed with three refills. d. Patient may continue to use his regular emollient cream for his hands. e. Recommend that in addition to using his T/Gel shampoo for his scalp, alternate every two weeks between this and a second shampoo, and I have ordered a prescription today for ketoconazole 2% cream. 120 mL dispensed with five refills. d. Discussed the possible need to advance to oral therapies. COPY: Riley Vega P.A.-C. documented in this encounter Plan of Treatment Not on file documented as of this encounter Visit Diagnoses Diagnosis Psoriasis Other psoriasis documented in this encounter Care Teams Foreign Languages Professor Relationship Specialty Start Date End Date Steve Flores MD [address] [place] [id number] PCP - General 05/21/10 06/10/21 documented as of this encounter
--- OUTSIDE RECORDS SUMMARY | 2024-07-04 20:09 | XMS_ITS | Encounter Summary ---
Author Organization [facility] Address [facility] [place] [address] Care Team Providers Care Title Examiner Name Role Phone Steve Flores MD Primary Care Provider [phone] Encounter Details Date Type Department Care Team (Late st Contact Info) Description 04/01/2011 9:30 AM EDT Procedure [place] [address] Lawrence Arora MD [facility] [place] [address] Retinal hole or tear, left (Primary Dx) Discharge Disposition: Home Social History Tobacco Use [...] Notes * Lawrence Arora MD - 04/01/2011 11:19 AM EDT Tear at 2 treated. Lattice at 4,Holes and lattice at 5 and large hole with SRF at 7 all treated OS Went well Dr Mohan 6 weeks STAT prn documented in this encounter Plan of Treatment Not on file documented as of this encounter Procedures Procedure Name Priority Date/Time Associated Diagnosis Comments DESTRUCTION LOC LESION RETINA-PHOTOCOAG - OS - LEFT EYE Routine 04/01/2011 11:18 AM EDT Retinal hole or tear, left documented in this encounter Results * Laser Focal Retinal Lesion - OS - Left Eye (04/01/2011 11:18 AM EDT) Laser Applications 600 Laser [employer] Anatomical Region Laterality Modality Other Lawrence Arora MD OPHTHALMOLOGY S ERVIC ORDERABLES documented in this encounter Visit Diagnoses Diagnosis Retinal hole or tear, left- Primary Retinal defect, unspecified documented in this encounter Care Teams Title Examiner Relationship Specialty Start Date End Date Steve Flores MD [address] [place] [id number] PCP - General 05/21/10 06/10/21 documented as of this encounter
--- OUTSIDE RECORDS SUMMARY | 2024-07-04 20:09 | XMS_ITS | Encounter Summary ---
Author Organization [facility] Address [facility] [place] [place] [address] Care Team Providers Care Hoisting Engine Operator Name Role Phone Steve Flores MD Primary Care Provider [phone] Encounter Details Date Type Department Care Team (Late st Contact Info) Description 12/07/2015 11:30 AM EDT Office Visit Dermatology at [address] [place] [phone] Dat Sheldon MD [address] [facility] [place] [address] Psoriasis Social History Tobacco Use Types Packs/Day [...] Progress Notes * Dat Sheldon MD - 12/07/2015 12:27 PM EDT Problem: 1. Followup pustular psoriasis, palmar hands. 2. Family history of psoriasis in father. Nikita follows up and has seen some improvement but still has significant remaining itching and thickening of the thenar eminence of both palms. Nikita reminds me that his first prescribed cream from Riley Vega was for fluocinonide cream. Physical examination reveals hyperkeratosis without significant scaling and today with only one or two pustules present. He continues to have some mild scalp psoriasis, and he does have some mild pitting of his nails. Assessment and Plan: Pustular psoriasis, palmar hands, thenar eminences. a. Continue clobetasol cream 0.05%, applying on a b.i.d. basis. b. Continue Aveeno or CeraVe cream as emollients during the day. Try to wear gloves when doing frictional work. He does landscaping work. c. Recommend that to try to help break the itch, scratch, itch cycle and better control his localized primarily thenar eminence involvement, that Kenalog injection be utilized. Patient agrees. After obtaining informed consent sites were injected with Kenalog, 3 mL of the 5 mg/mL solution were utilized. Return to clinic in another month for repeat check. d. Continue using his two different shampoos, T/Gel and ketoconazole, alternating every two weeks between them. e. Continue to try and avoid oral therapies, which both he and I would like to avoid. documented in this encounter Plan of Treatment Not on file documented as of this encounter Visit Diagnoses Diagnosis Psoriasis Other psoriasis documented in this encounter Care Teams Hoisting Engine Operator Relationship Specialty Start Date End Date Steve Flores MD [address] [place] [id number] PCP - General 05/21/10 06/10/21 documented as of this encounter
--- OUTSIDE RECORDS SUMMARY | 2024-07-04 20:09 | XMS_ITS | Encounter Summary ---
Author Organization [facility] Address [facility] [place] [address] Care Team Providers Care A And P Mechanic Name Role Phone Steve Flores MD Primary Care Provider [phone] Reason for Visit * Reason Comments Ureteral Obstruction Encounter Details Date Type Department Care Team (Late st Contact Info) Description 01/07/2011 4:00 PM EDT [place] [phone] Torres Lindsey Jr., MD [facility] [address] [place] [address] UPJ obstruction, acquired (Primary Dx) Discharge Disposition: Home Social History [...] on file documented as of this encounter Last Filed Vital Signs Vital Sign Reading [...] Mass Index 25.04 01/07/2011 3:44 PM EDT documented in this encounter Patient Instructions * Patient Instructions* Torres Lindsey Jr., MD - 01/07/2011 4:21 PM EDT Plan annual followup with nuclear scan. Please call or return in the interval if new problems or pain develop. documented in this encounter Progress Notes * Torres Lindsey Jr., MD - 01/07/2011 4:12 PM EDT Chief Complaint: right flank pain, suspected right upj obstruction History of Present Illness: Mr. Davis is pleasant 45years old man who returns for urologic follow up regarding his right upjobstruction. He specifically denies any reliable exacerbation of pain with drinking large volumes of fluids, drinking several alcoholic beverages, or with the administration of lasix. By report, his kidney function has remained stable as measured by serial nuclear renograms over thelast [address] at his last visit in 2008 revealed no stones. He underwent balloon dilation of the UPJ in 1998, followed by 2 attempts at accucise endopyeotomy in 2002 and 2005, with persistent impaired drainage by renogram. In the interval since his last visit, he denies any recurrences of flank pain, nausea, fevers, hematuria. He has had no pain with EtOH intake. Currently, he has 0/10 pain. Review of systems: unchanged since last visit. Past medical history: none per pt Past surgical history: RIGHT BALLOON DILATION OF UPJ (1998); right accucise endopyelotomy (2002); right accucise (2005) endopyelotomy at [place] by Dr benjamin Lorenzo No Family History of urologic disorders Soc Hx: No tobacco. Physical exam: General: He is sitting up comfortably, in no acute distress. Alert and oriented x3, pleasant and cooperative to exam, with no undue anxiety, normal affect and mood. Abdomen: s/nd/nt. No rebound or guarding. He has no CVA tenderness to percussion . Laboratory studies: Urinalysis reveals trace leukocyte esterase, no nitrite, trace heme. Imaging Studies: I had independently reviewed the lasix renogram from 08/2008. It reveals differential renal functionof 48%right and 52%left with T 1/2 of 37 minutes on right (normal on left), representing evidence of obstruction on right side. I compared this with the prior lasix renograms from 2004, 2002, and 1997 which revealed differential renal functions of 49%, 50%, and 36% respectively. T 1/2 of 35 minutes, 53 minutes, and 57 minutes, respectively. Impression: Right UPJ obstruction. 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 Stating that at this point he remains asymptomatic, he would like to defer any additional interventions for now. He understands that if he is having worsening of his symptoms he should contact us immediately. He did not have his renal scan this year as planned, and we discussed timing of this. He is comfortable to wait until next year for this. Worsening renal function may prompt need for intervention. He will return in 1 year with renal scan, sooner if needed for new symptoms. documented in this encounter Plan of Treatment Not on file documented as of this encounter Visit Diagnoses Diagnosis UPJ obstruction, acquired- Primary Other ureteric obstruction documented in this encounter Care Teams A And P Mechanic Relationship Specialty Start Date End Date Steve Flores MD [address] [place] [id number] PCP - General 05/21/10 06/10/21 documented as of this encounter
== END 2024-07-04 20:07 | disposition home or self-care (01) ==
LOC: NCHCN 20:06
PROVIDERS: PCP Physician Assistant; Visit Provider Nurse Practitioner Family
DX: E78.5 Hyperlipidemia, unspecified (principal); I10 Essential (primary) hypertension
CPT/HCPCS: 80053; 80061